=== PATIENT | female | born 1990 | race Two or more races ===

== ENCOUNTER 2021-04-13 10:19 | Emergency (ER) | payer OTHER ==
[~2021-04-13] VITALS: Ht 165.1 cm; Wt 77.3 kg
[2021-04-13 11:30] VITALS: BP 118/68
== END 2021-04-13 11:59 | disposition home or self-care (01) ==
LOC: EMS 10:23
DX: Z11.1 Encounter for screening for respiratory tuberculosis (principal)
CPT/HCPCS: 71046; 99283